=== PATIENT | male | born 1975 | race Caucasian/White ===

== ENCOUNTER 2022-12-17 12:18 | Emergency (ER) | payer BC, SELFPAY ==
[2022-12-17 13:05] VITALS: BP 138/92; PULSE 74; RESP 18; TEMP 36.8; O2SAT 100
--- NOTE | 2022-12-17 13:58 | ED.GENADULT ---
HPI - General Adult General Chief complaint: Upper Respiratory Infection Stated complaint: sorethroat,rt ear pain Time Seen by Provider: 12/17/22 13:58 Source: patient Mode of arrival: ambulatory Limitations: no limitations History of Present Illness HPI narrative: 47-year-old male patient presents to the [facility] with complaints of bilateral ear pain, sore throat, congestion and fevers for the past week. Patient states that his was diagnosed with strep a couple of days ago. Related Data Allergies Allergy/AdvReac Type Severity Reaction Status Date / Time codeine AdvReac Mild Rash Verified 10/28/21 13:31 Review of Systems Review of Systems: CONSTITUTIONAL: Positive fever, chills, or sweats. EYES: Denies visual changes, redness, or discharge. ENT: Denies rhinorrhea, positive congestion, sore throat, and bilateral otalgia. CARDIOVASCULAR: Denies chest pain, palpitations, or edema. RESPIRATORY: Denies cough or dyspnea. GASTROINTESTINAL: Denies abdominal pain, nausea, vomiting, or diarrhea. GENITOURINARY: Denies dysuria or hematuria. SKIN: Denies rash or itching. MUSCULOSKELETAL: Denies back pain, joint pain, or myalgia. NEUROLOGIC: Denies headache, numbness, or weakness. PSYCHIATRIC: Denies anxiety or depression. [facility] Past Medical History Medical History Abnormal EKG Acute pharyngitis, unspecified Anxiety BMI 26.0-26.9,adult Dietary counseling and surveillance (11/01/18) Elevated fasting glucose Family history of heart disease Low testosterone Screening for cholesterol level Screening for diabetes mellitus Screening for prostate cancer Screening for thyroid disorder Tobacco use Weight loss Family History Family History Father Hypertension Diabetes mellitus Emphysema lung Cholecystectomy planned Mother Carcinoma of colon Cholecystectomy planned Sibling Cholecystectomy planned Social History Social History Smoking status: Current some day smoker Tobacco type: cigars Second hand tobacco smoke exposure: Yes Alcohol intake: current Substance use: never Substance use type: does not use Living arrangements: with family Occupation/Education: occupation Additional occupation/education comments: landscaping Gender identity (if verbalized by the patient): Male Comments at the time of my signature I agree with nursing past medical history, surgical, social, and family history. There is no relevant family history pertinent to the presenting complaint. Exam Narrative: GENERAL: Well-appearing, well-nourished, and in no acute distress. HEAD: Normocephalic, atraumatic. EYES: PERRLA and EOMI. ENT: Nares clear, no rhinorrhea or epistaxis. Mucous membranes moist. posterior pharynx with erythema. No tonsils present. Bilateral TMs are clear no erythema foreign bodies to the canal NECK: Supple. cervical and tender lymphadenopathy CHEST: Clear to auscultation. No respiratory distress. HEART: Regular rate and rhythm. No murmur heard. Normal peripheral pulses. ABDOMEN: Soft, nontender, nondistended, normal active bowel sounds. EXTREMITIES: Normal range of motion. No edema. SKIN: Warm, dry, no rash. NEURO: No focal deficits. Alert and oriented x3. Course Course Level of Care: Express Care Visit Vital Signs Vital signs: Vital Signs Temperature 36.8 C 12/17/22 13:05 Pulse Rate 74 12/17/22 13:05 Respiratory Rate 18 12/17/22 13:05 Blood Pressure 138/92 H 12/17/22 13:05 Pulse Oximetry 100 12/17/22 13:05 Oxygen Delivery Room Air 12/17/22 13:05 Temperature 36.8 C 12/17/22 13:05 Pulse Rate 74 12/17/22 13:05 Respiratory Rate 18 12/17/22 13:05 Blood Pressure 138/92 H 12/17/22 13:05 Pulse Oximetry 100 12/17/22 13:05 Oxygen Delivery Room Air 12/17/22 13:05 vital signs reviewed. The
== END 2022-12-17 14:23 | disposition home or self-care (01) ==
PROVIDERS: Emergency Provider Nurse Practitioner Family; PCP Family Medicine
DX: J02.9 Acute pharyngitis, unspecified (principal); F17.290 Nicotine dependence, other tobacco product, uncomplicated
CPT/HCPCS: 87081; 87880; 99213; G0463